=== PATIENT | male | born 1970 | race Caucasian/White ===

== ENCOUNTER 2020-09-26 12:55 | Emergency (ER) | payer MEDICAID, SELFPAY ==
[~2020-09-26] VITALS: Ht 170.2 cm; Wt 95.3 kg
[2020-09-26 13:00] VITALS: BP_SYST 112
--- NOTE | 2020-09-26 13:05 | NUR ---
Placed in room 8. 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 To gown for exam. Side rails up. Report given to CHEN Augustine.
--- NOTE | 2020-09-26 13:06 | NUR ---
ER at bedside examining patient.
--- NOTE | 2020-09-26 13:20 | NUR ---
Pt came to ER for sore throat, body aches, back pain rates pain 9/10. Pt states this has been ongoing for 1month, resting in [facility]
--- NOTE | 2020-09-26 14:00 | NUR ---
Pt resting in [place] watching tv
[2020-09-26 15:52] VITALS: BP_SYST 112
--- NOTE | 2020-09-26 15:53 | NUR ---
Patient given written and verbal discharge instructions and verbalizes understanding. ER MD discussed with patient the results and treatment provided. Patient in stable condition. ID arm band removed. Rx of Azithromaycin given. Patient educated on pain management and to follow up with PMD. Pain Scale 0/10. Opportunity for questions provided and answered. Medication side effect fact sheet provided.
== END 2020-09-26 15:53 | disposition home or self-care (01) ==
LOC: SED 12:55
DX: U07.1 COVID-19 (principal); J02.9 Acute pharyngitis, unspecified
CPT/HCPCS: 36415; 70360; 71045; 86710; 87426; 93005; 99284; C9803; U0003

== ENCOUNTER 2021-03-25 15:20 | Emergency (ER) | payer MEDICAID, SELFPAY ==
[~2021-03-25] VITALS: Ht 172.7 cm; Wt 95.3 kg
[2021-03-25 15:24] VITALS: BP_SYST 108
[2021-03-25 16:01] LABS: BASOPHILS % (AUTO) 0.6 % (0.0-2.0); EOSINOPHILS # (AUTO) 0.1 K/uL (0.0-0.4); EOSINOPHILS % (AUTO) 1.4 % (0.0-4.0); HEMATOCRIT 40.8 % (36-54); LYMPHOCYTES % (AUTO) 29.7 % (20.5-51.5); MEAN CORPUSCULAR HEMOGLOBIN 30 pg (27-31); MEAN CORPUSCULAR HGB CONC 34 % (32-36); MEAN CORPUSCULAR VOLUME 87 fL (79.0-98.0); MONOCYTES # (AUTO) 0.7 K/uL (0.0-1.0); NEUTROPHILS # (AUTO) 3.9 K/uL (1.8-7.7); NEUTROPHILS % (AUTO) 58.3 % (40.0-70.0); PLATELET COUNT (AUTO) 201 K/uL (130-430); RED BLOOD CELL COUNT(AUTO) 4.71 MIL/uL (4.2-6.2); RED CELL DISTRIBUTION WIDTH 12.7 % (9.0-15.0); WHITE BLOOD COUNT (AUTO) 6.6 K/uL (4.8-10.8)
[2021-03-25 16:15] LABS: ANION GAP 5 (5-15); CALCIUM 8.3 mg/dL (8.4-11.0); CHLORIDE 108 mmol/L (98-107); CREATININE 1.03 mg/dL (0.55-1.30); GLUCOSE 89 mg/dL (70-99); POTASSIUM 3.8 mmol/L (3.5-5.1); SODIUM SERUM 143 mmol/L (136-145); UREA NITROGEN, BLOOD 17 mg/dL (8-21)
[2021-03-25] MEDS ORDERED: MAG HYDROX/AL HYDROX/SIMETH 30 ML, LIDOCAINE VISCOUS 2% 15ML (PO) 15 ML, DICYCLOMINE HC... PO ONE ×3 (16:15)
[2021-03-25 16:20] LABS: GFR AFRICAN AMERICAN 98 mL/min (>90)
[2021-03-25 16:23] LABS: ALANINE AMINOTRANSFERASE 49 U/L (12-78); ALBUMIN 3.6 g/dL (3.4-4.8); ASPARTATE AMINOTRANSFERASE 30 U/L (10-37); TOTAL BILIRUBIN 0.7 mg/dL (0.0-1.0)
[2021-03-25] MEDS ORDERED: FAMO20TA8 PO (19:05)
[2021-03-25 19:27] VITALS: BP_SYST 119
== END 2021-03-25 19:27 | disposition home or self-care (01) ==
LOC: SED 15:20
DX: R07.9 Chest pain, unspecified (principal); K21.9 Gastro-esophageal reflux disease without esophagitis; Z79.899 Other long term (current) drug therapy
CPT/HCPCS: 36415; 71045; 80053; 84484; 85025; 93005; 99285; J2001; 99284